=== PATIENT | male | born 1945 | race Caucasian/White ===

== ENCOUNTER → 2020-12-22 | Outpatient (CLI) | payer MEDICARE ==
[~2020-12-22] MED LIST: AMIO200T6 PO; ESOM20CA PO; ESOM40CA PO; FISH OIL; HYDR12.58 PO; IMMUNE DEFENSE PO; LOSA-73 PO; MELA10CA PO; METF500T16 PO; MULT-690 PO; MV-M1CAP18 PO; NITR0.4T22 SL; WARF3TAB50 PO; WARF4TAB64 PO; [UNRECOGNIZED DRUG - OTHER] PO; [UNRECOGNIZED DRUG - REMARK]
== END ==
LOC: LAB 12:35
PROVIDERS: ATTEND Surgery
DX: Z01.812 Encounter for preprocedural laboratory examination (principal); K21.9 Gastro-esophageal reflux disease without esophagitis; Z20.822 Contact with and (suspected) exposure to COVID-19
CPT/HCPCS: U0003

== ENCOUNTER 2020-12-27 08:36 | Observation (INO) | payer MEDICARE ==
[2020-12-27] VITALS (9 sets, daily range): BP systolic 143–157; BP diastolic 50–72
[~2020-12-27] VITALS: Ht 188 cm; Wt 105.5 kg
[~2020-12-27 08:36] MED LIST changes: +HYDROmorphone 2 MG/ML VIAL IVP PRN; +PROCHLORPERAZINE 10 MG/2 ML VIAL. IVP PRN; +ceFAZolin 2GM PREMIX 2 GM/50 ML BAG IV ONE; +fentaNYL PF VIAL 100 MCG/2 ML VIAL IVP PRN
[2020-12-27] MEDS ORDERED: ROCURONIUM 100 MG/10 ML VIAL. ONE (09:16)
[2020-12-27] MEDS ORDERED: DEXAMETHASONE SOD PHOS 4 MG/ML VIAL ONE (09:16)
[2020-12-27] MEDS ORDERED: PROPOFOL 10 MG/ML (20ML) VIAL. IV ONE (09:16)
[2020-12-27] MEDS ORDERED: LIDOCAINE 2% PF 5 ML VIAL. ONE (09:16)
[2020-12-27] MEDS ORDERED: ONDANSETRON PF 4 MG/2 ML VIAL. ONE ×2 (09:16→13:32)
[2020-12-27] MEDS ORDERED: fentaNYL PF VIAL 250 MCG/5 ML VIAL ONE (09:16)
[2020-12-27] MEDS ORDERED: MIDAZOLAM HCL/PF 2 MG/2 ML VIAL. ONE (09:16)
[2020-12-27] MEDS ORDERED: SURGICEL HEMOSTAT 4X8 EACH. ONE (09:19)
[2020-12-27] MEDS ORDERED: BUPIVACAINE-EPI 0.5%-1:200000 MPF 30 ML VIAL. ONE (09:19)
[2020-12-27] MEDS: IV RINGERS,LACTATED 1000ML 1,000 ML IV SCH ×2 (09:21→14:15)
[2020-12-27 09:46] LABS: PROTHROMBIN TIME PATIENT 14.4 SEC (11.7-14.0)
[2020-12-27] MEDS ORDERED: INSULIN LISPRO 100 UNIT/ML 3ML VIAL for OP,RR ONLY. SQ PRN (10:00)
[2020-12-27] MEDS ORDERED: ceFAZolin SODIUM IV Push 1 GM VIAL. IVP ONE ×2 (10:19)
[2020-12-27] MEDS ORDERED: NEOSTIGMINE METHYLSULFATE 5 MG/5 ML SYRINGE. ONE (13:08)
[2020-12-27] MEDS ORDERED: GLYCOPYRROLATE 1 MG/5 ML VIAL. ONE (13:08)
[2020-12-27] MEDS ORDERED: PHENYLEPHRINE in 0.9% NACL PF 1 MG/10 ML SYRINGE. IV ONE (13:23)
--- NOTE | 2020-12-27 13:55 | PDOC4 ---
Operative Note Operative Note Operative Note Preoperative Diagnosis: Hiatal hernia with gastroesophageal reflux disease Postoperative Diagnosis: Same Procedure: Laparoscopic repair of hiatall hernia with Dawna fundoplication Surgeon: Isai Miller.: Anoop Wen Anesthesia: Gen. Estimated Blood Loss: 20 mL Specimen: Hernia sac to pathology Drains: None Complications: None Indications: The patient is a 75 year old male who is referred for surgical treatment of a hiatal hernia with GERD symptoms. The risks of surgery were discussed which include bleeding, infection, recurrent herniation, gastric or esophageal perforation, visceral injury, recurrent reflux, gas bloat syndrome, dysphasia, potential need for additional surgeries or procedures. He understands and would like to proceed. Description: The patient was taken to the operating room and placed supine on the operating table. General anesthesia was performed. The patient was then placed in lithotomy. The abdomen was prepped with ChloraPrep and draped in a standard surgical fashion. A small incision was made in the left lateral abdomen through which a visualized 5 mm trocar was inserted. A pneumoperitoneum was then created and the laparoscope was introduced. Initial inspection showed some prominent adhesions of omentum to the anterior abdominal wall. To the left of the patient's umbilicus another 5 mm trocar was inserted. With the harmonic scalpel these adhesions of the omentum to the abdominal wall were taken down. In the right lateral abdomen a 12 mm trocar was inserted through which a soft fan retractor was used to elevate the left lobe of the liver. In the right upper quadrant a 5 mm trocar was inserted. In the left upper quadrant an 11 mm trocar was inserted while in the left lateral abdomen a 5 mm trocar was inserted. Attention was then directed to the diaphragmatic hiatus. As expected there was a moderate sized hiatal hernia defect. We then began mobilizing the entire hernia sac within the mediastinum. We started this on the right side and began freeing up the sac from the right froilan. The Harmonic scalpel assisted for much of this dissection. We continued mobilizing the sac superiorly well into the mediastinum. We continued this dissection anteriorly freeing up the sac and its attachments in this location. The dissection then continued along the left froilan and the sac and attachments were mobilized here as well. Portions of the redundant sac were also fully excised and sent off to pathology as a specimen. There was also a very prominent amount of fatty infiltration of the sac and mediastinal tissues. Several areas of prominent adipose tissue were resected and sent off with a hernia sac as specimen. The gastrocolic omentum was then opened with the Harmonic scalpel in the upper portion of the greater curvature. We then freed up the upper part of the greater curvature and fundus using the harmonic scalpel. Large blood vessels were doubly clipped and divided. The dissection continued all the way back up to the left froilan and any remaining splenic attachments were also mobilized. At this point the esophagus was readily visualized and we were able to free up the area around his gastroesophageal junction. A Augusta drain was then placed around the esophagus at the GE junction and clips were applied holding the Augusta in place. With retraction on the Augusta we were able to continue freeing up any remaining sac attachments particularly in the posterior location. At this point the GE junction was well within the abdominal cavity. The left and right froilan were then reapproximated with interrupted 2-0 silk sutures using the Endo Stitch device. We elected to reinforce the closure with Phasix ST mesh patch. The mesh was tailored to fit the space and a slit was made to accommodate the esophagus. The mesh was then introduced and laid up against the diaphragm and around the esophagus. Initial fixation sutures were placed at the superior corners of the mesh using 2-0 silk. The entire mesh was then fixed to the diaphragm using the Tisseel fibrin glue. The fundus was then wrapped around in a 360 fashion creating the fundoplication. A shoeshine maneuver was used to ensure no twists or kinks. An initial 2-0 Ethibond suture was used securing the fundic lips together. Another suture was placed superior to this which incorporated a small bite of the anterior esophagus. An additional suture was then placed inferiorly completing the fundoplication. At this point hemostasis was good, the hernia was well repaired with good coverage from the biologic mesh, and the fundoplication was intact with a nice orientation. The 11 and 12 mm trochars were then removed and the fascia closed with 0 Vicryl using an Endo Close. The remaining ports were removed and the pneumoperitoneum was relieved. Skin at all incisions was closed with 4-0 Monocryl. Steri-Strips and dressings were applied. The patient tolerated the procedure well. JAIRO PEREZ MD Dec 27, 2020 13:55
[2020-12-27] MEDS ORDERED: SEVOFLURANE > 120 MINUTES. IH ONE (13:56)
[2020-12-27] MEDS ORDERED: HYDROmorphone 2 MG/ML VIAL IV PRN ×3 (14:00→14:15)
[2020-12-27] MEDS ORDERED: IV NORMAL SALINE 1000ML BAG 1,000 ML IV SCH (14:00)
[2020-12-27] MEDS ORDERED: ONDANSETRON PF 4 MG/2 ML VIAL. IVP PRN ×2 (14:00→17:45)
[2020-12-27] MEDS ORDERED: 0.9 % SODIUM CHLORIDE 10 ML DISP.SYRIN. IV PRN (14:00)
[2020-12-27] MEDS: IV 1/2 NORMAL SALINE 1,000 ML IV SCH (14:00)
[2020-12-27] MEDS ORDERED: NALOXONE 0.4 MG/ML VIAL. IV PRN (14:00)
[2020-12-27] MEDS ORDERED: INSULIN LISPRO 100 UNIT/ML 3ML VIAL for OP,RR ONLY. SQ ONE (14:15)
--- NOTE | 2020-12-27 14:19 | PDOC2 ---
CONSULT Date of Consult Date of Consult DATE: 12/27/20 TIME: 14:11 Reason for Consult Reason for Consult: postop diabetes/medical management Referring Physician Referring Physician: Dr. 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 His pain is well controlled with minimal Dilaudid currently. He notes his blood glucose usually controlled with Metformin with meals at home. He follows at [facility] for cardiology with Dr. Hinojosa, had preoperative clearance and has held his warfarin since 12/23/2020. INR 1.2 preoperatively. He currently has no complaints, except asking for water. Glucose 155 during my examination Past Medical History Cardiovascular: AFIB, HTN Pulmonary: Pulmonary embolus GI: GERD, Peptic Ulcer disease Endocrine: Diabetes Past Surgical History Past Surgical History: Pacemaker, Hernia Repair Family History Family History: Diabetes Social History <1 pack per day ALCOHOL: none Drugs: None Lives: with Family Domestic Violence: Neg Current Medications Current Medications Current Medications Fentanyl Citrate (Fentanyl 2ml Vial) 25 mcg PRN Q5MIN PRN IVP MILD PAIN 1-3; Start 12/27/20 at 06:00; Stop 12/27/20 at 20:00 Fentanyl Citrate (Fentanyl 2ml Vial) 50 mcg PRN Q5MIN PRN IVP MODERATE PAIN 4- 6; Start 12/27/20 at 06:00; Stop 12/27/20 at 20:00 Morphine Sulfate (Morphine Sulfate) 1 mg PRN Q10MIN PRN IVP SEVERE PAIN 7-10; Start 12/27/20 at 06:00; Stop 12/27/20 at 20:00 Ringer's Solution 1,000 ml @ 30 mls/hr Q24H IV Last administered on 12/27/20at 09:21; Start 12/27/20 at 06:00; Stop 12/27/20 at 17:59 Hydromorphone HCl (Dilaudid) 0.5 mg PRN Q10MIN PRN IVP SEVERE PAIN 7-10, 2nd CHOICE; Start 12/27/20 at 06:00; Stop 12/27/20 at 20:00 Prochlorperazine Edisylate (Compazine) 5 mg PACU PRN PRN IVP NAUSEA, MRX1; Start 12/27/20 at 06:00; Stop 12/27/20 at 20:00 Cefazolin Sodium/ Dextrose 50 ml @ 100 mls/hr 1X ONCE IV ; Start 12/27/20 at 08:00; Stop 12/27/20 at 08:29; Status DC Rocuronium [place] (Zemuron) 100 mg STK-MED ONCE .ROUTE ; Start 12/27/20 at 09:16; Stop 12/27/20 at 09:16; Status DC Midazolam HCl (Versed) 2 mg STK-MED ONCE .ROUTE ; Start 12/27/20 at 09:16; Stop 12/27/20 at 09:16; Status DC Fentanyl Citrate (Fentanyl 5ml Vial) 250 mcg STK-MED ONCE .ROUTE ; Start 12/27/20 at 09:16; Stop 12/27/20 at 09:16; Status DC Dexamethasone Sodium Phosphate (Decadron) 4 mg STK-MED ONCE .ROUTE ; Start 12/27/20 at 09:16; Stop 12/27/20 at 09:17; Status DC Ondansetron HCl (Zofran) 4 mg STK-MED ONCE .ROUTE ; Start 12/27/20 at 09:16; Stop 12/27/20 at 09:17; Status DC Propofol (Diprivan) 200 mg STK-MED ONCE IV ; Start 12/27/20 at 09:16; Stop 12/27/20 at 09:17; Status DC Lidocaine HCl (Lidocaine Pf 2% Vial) 5 ml STK-MED ONCE .ROUTE ; Start 12/27/20 at 09:16; Stop 12/27/20 at 09:17; Status DC Bupivacaine HCl/ Epinephrine Bitart (Sensorcain-Epi 0.5%-1:440719 Mpf) 30 ml STK-MED ONCE .ROUTE Last administered on 12/27/20at 10:52; Start 12/27/20 at 09:19; Stop 12/27/20 at 09:19; Status DC Cellulose (Surgicel Hemostat 4x8) 1 each STK-MED ONCE .ROUTE ; Start 12/27/20 at 09:19; Stop 12/27/20 at 09:19; Status DC Insulin Human Lispro (HumaLOG VIAL for OP,RR ONLY) 0-10 units PRN Q1HR PRN SQ PER PROTOCOL; Start 12/27/20 at 10:00; Stop 12/28/20 at 09:59 Cefazolin Sodium (Ancef) 1 gm STK-MED ONCE IVP ; Start 12/27/20 at 10:19; Stop 12/27/20 at 10:19; Status DC Cefazolin Sodium (Ancef) 1 gm STK-MED ONCE IVP ; Start 12/27/20 at 10:19; Stop 12/27/20 at 10:20; Status DC Neostigmine [place] (Neostigmine Methylsulfate) 5 mg STK-MED ONCE .ROUTE ; Start 12/27/20 at 13:08; Stop 12/27/20 at 13:08; Status DC Glycopyrrolate (Robinul) 1 mg STK-MED ONCE .ROUTE ; Start 12/27/20 at 13:08; Stop 12/27/20 at 13:08; Status DC Phenylephrine HCl (PHENYLEPHRINE in 0.9% NACL PF) 1 mg STK-MED ONCE IV ; Start 12/27/20 at 13:23; Stop 12/27/20 at 13:23; Status DC Ondansetron HCl (Zofran) 4 mg STK-MED ONCE .ROUTE ; Start 12/27/20 at 13:32; Stop 12/27/20 at 13:33; Status DC Sevoflurane (Ultane) 90 ml STK-MED ONCE IH ; Start 12/27/20 at 13:56; Stop 12/27/20 at 13:56; Status DC Sodium Chloride (Normal Saline Flush) 3 ml QSHIFT PRN IV AFTER MEDS AND BLOOD DRAWS; Start 12/27/20 at 14:00 Sodium Chloride 1,000 ml @ 100 mls/hr Q10H IV ; Start 12/27/20 at 14:00 Naloxone HCl (Narcan) 0.4 mg PRN Q2MIN PRN IV SEE INSTRUCTIONS; Start 12/27/20 at 14:00 Sodium Chloride 1,000 ml @ 25 mls/hr Q24H IV ; Start 12/27/20 at 14:00 Hydromorphone HCl (Dilaudid) 0.2 mg PRN Q2HRS PRN IV MILD PAIN 1-3; Start 12/27/20 at 14:00 Ondansetron HCl (Zofran) 4 mg PRN Q6HRS PRN IVP NAUESA, 1ST CHOICE; Start 12/27/20 at 14:00 Enoxaparin Sodium (Lovenox 40mg Syringe) 40 mg Q24H SQ ; Start 12/27/20 at 14:15; Status UNV Hydromorphone HCl (Dilaudid) 0.4 mg PRN Q2HRS PRN IV MODERATE PAIN; Start 12/27/20 at 14:15 Hydromorphone HCl (Dilaudid) 0.6 mg PRN Q2HRS PRN IV SEVERE PAIN; Start 12/27/20 at 14:15 Active Scripts Active Reported Metformin Hcl 500 Mg Tablet 500 Mg PO 1-2XD Melatonin 10 Mg Capsule 1 Cap PO QHS 30 Days Warfarin Sodium 3 Mg Tablet 3 Mg PO 2XWEEK Warfarin Sodium 4 Mg Tablet 4 Mg PO 5XWEEK Macular Health Formula Capsule (Mv-Mn/Lutein/Zeax/Bilber/Hb277) 1 Each Capsule 1 Each PO DAILY [Immune defense] PO DAILY [paragon fish oil] DAILY NITROGLYCERIN SubLingual (Nitroglycerin) 0.4 Mg Tab.subl 0.4 Mg SL PRN Q5MIN PRN Nexium Capsule (Esomeprazole Magnesium) 20 Mg Capsule.dr 20 Mg PO DAILYWSUP Nexium Capsule (Esomeprazole Magnesium) 40 Mg Capsule.dr 1 Cap PO DAILY Losartan Potassium 50 Mg Tablet 50 Mg PO DAILY [iron plus C] PO DAILY Hydrochlorothiazide Tablet (Hydrochlorothiazide) 12.5 Mg Tablet 12.5 Mg PO DAILY Centrum Silver Men Tablet (Multivit-Min/FA/Lycopen/Lutein) 1 Each Tablet 1 Each PO DAILY [enzyme MD] DAILY Amiodarone Hcl 200 Mg Tablet 1 Tab PO DAILY Allergies Allergies: Coded Allergies: No Known Drug Allergies (Unverified , 12/27/20) ROS General: No: Chills, Night Sweats, Fatigue, Malaise, Appetite, Other PSYCHOLOGICAL ROS: No: Anxiety, Behavioral Disorder, Concentration difficultie, Decreased libido, Depression, Disorientation, Hallucinations, Hostility, Irritablity, Memory difficulties, Mood Swings, Obsessive thoughts, Physical abuse, Sexual abuse, Sleep disturbances, Suicidal ideation, Other Eyes: No Blurry vision, No Decreased vision, No Double vision, No Dry eyes, No Excessive tearing, No Eye Pain, No Itchy Eyes, No Loss of vision, No Photophobia, No Scotomata, No Uses contacts, No Uses glasses, No Other HEENT: No: Heacaches, Visual Changes, Hearing change, Nasal congestion, Nasal discharge, Oral lesions, Sinus pain, Sore Throat, Epistaxis, Sneezing, Snoring, Tinnitus, Vertigo, Vocal changes, Other ALLERGY AND IMMUNOLOGY: No: Hives, Insect Bite Sensitivity, Itchy/Watery Eyes, Nasal Congestion, Post Nasal Drip, Seasonal Allergies, Other Hematological and Lymphatic: YES: Bleeding Problems, Blood Clots; No: Blood Transfusions, Brusing, Night Sweats, Pallor, Swollen Lymph Nodes, Other ENDOCRINE: No: Breast Changes, Galactorrhea, Hair Pattern Changes, Hot Flashes, Malaise/lethargy, Mood Swings, Palpitations, Polydipsia/polyuria, Skin Changes, Temperature Intolerance, Unexpected Weight Changes, Other Breast: No New/Changing Breast Lumps, No Nipple changes, No Nipple discharge, No Other Respiratory: No: Cough, Hemoptysis, Orthopnea, Pleuritic Pain, Shortness of breath, SOB with excertion, Sputum Changes, Stridor, Tachypnea, Wheezing, Other Cardiovascular: No Chest Pain, No Palpitations, No Orthopnea, No Paroxysmal Noc. Dyspnea, No Edema, No Lt Headedness, No Other Gastrointestinal: No Nausea, No Vomiting, No Abdominal Pain, No Diarrhea, No Constipation, No Melena, No Hematochezia, No Other Genitourinary: No Dysuria, No Frequency, No Incontinence, No Hematuria, No Retention, No Discharge, No Urgency, No Pain, No Flank Pain, No Other, No , No , No , No , No , No , No Musculoskeletal: No Gait Disturbance, No Joint Pain, No Joint Stiffness, No Joint Swelling, No Muscle Pain, No Muscular Weakness, No Pain In:, No Swelling In:, No Other Neurological: No Behavorial Changes, No Bowel/Bladder ControlChng, No Confu andres, No Dizziness, No Gait Disturbance, No Headaches, No Impaired Coord/balance, No Memory Loss, No Numbness/Tingling, No Seizures, No Speech Problems, No Tremors, No Visual Changes, No Weakness, No Other Skin: No Dry Skin, No Eczema, No Hair Changes, No Lumps, No Mole Changes, No Mottling, No Nail Changes, No Pruritus, No Rash, No Skin Lesion Changes, No Oth er, No Acne Physical Exam General: Alert, Oriented X3, Cooperative, No acute distress HEENT: Atraumatic, PERRLA, EOMI, Mucous membr. moist/pink, Other (Glasses and dentures in place) Lungs: Clear to auscultation, Normal air movement Heart: Other (Irregularly irregular) Abdomen: Normal bowel sounds, Soft, No tenderness, No hepatosplenomegaly, No masses Extremities: No clubbing, No cyanosis, No edema, Normal pulses, No tenderness/swelling Skin: No rashes, No breakdown Neuro: Normal speech, Strength at 5/5 X4 ext, Normal tone, Sensation intact, Cranial nerves 3-12 NL, Reflexes 2+ Psych/Mental Status: Mental status NL, Mood NL MUSCULOSKELETAL: No joint tenderness, No deformity, No swelling, No muscular tenderness noted, Full range of motion without pain Vitals VITALS Vital Signs Date Time Temp Pulse Resp B/P (MAP) Pulse Ox O2 Delivery O2 Flow Rate FiO2 12/27/20 13:56 Mask 8 12/27/20 09:13 97.5 73 20 187/78 98 97.5 Labs Labs Laboratory Tests Test 12/27/20 09:15 12/27/20 09:21 12/27/20 14:08 Glucose (Fingerstick) 111 mg/dL (70-99) 155 mg/dL (70-99) Prothrombin Time 14.4 SEC (11.7-14.0) Prothromb Time International Ratio 1.2 (0.8-1.1) Activated Partial Thromboplast Time 28 SEC (24-38) Laboratory Tests Test 12/27/20 09:15 12/27/20 09:21 12/27/20 14:08 Glucose (Fingerstick) 111 mg/dL (70-99) 155 mg/dL (70-99) Prothrombin Time 14.4 SEC (11.7-14.0) Prothromb Time International Ratio 1.2 (0.8-1.1) Activated Partial Thromboplast Time 28 SEC (24-38) Assessment/Plan Assessment/Plan A/P: GERD - with hiatal hernia, now seen post-operatively s/p dawna fundoplication DM2 - hold metformin, will place on sliding scale insulin IBS - diet controlled Smoker - counseled on cessation, offered nicotine replacement therapy HTN - cont losartan, hold HCTZ Atrial fibrillation - rate controlled with amiodarone, not on BB or CCB due to bradycardia according to patient. On warfarin for elevated CHADS2-Vasc SSS status post PPM - sees Dr. Hinojosa at [facility] Prior DVT and PE in 2009 on long-term warfarin - should also be on warfarin for his afib H/o Barrets esophagus - now s/p dawna FEN - NSS 100cc/hr. NPO except for sips PPX - lovenox in AM, would continue this along with his coumadin in AM. Goal INR 2-3 CODE - FULL Dispo - cont inpatient for post-operative care We will continue to follow daily, either myself or Dr. Cornejo. Call for any questions or concerns As patient recovers surgically we will be happy to take over primary care once surgical issues have resolved if necessary. Thank you for consulting [facility] for medical management. SALTY ANDERSEN MD Dec 27, 2020 14:19
[2020-12-27] MEDS ORDERED: MORPHINE SULFATE 2 MG/ML VIAL. ONE (14:33)
[2020-12-27] MEDS: MORPHINE SULFATE 2 MG/ML VIAL. IVP PRN ×2 (14:35→14:48)
[2020-12-27] MEDS ORDERED: HYDROmorphone 2 MG/ML VIAL ONE (14:55)
[2020-12-27] MEDS ORDERED: DEXTROSE 50% 25 GM / 50ML DISP.SYRIN. IV PRN (17:45)
[2020-12-27] MEDS ORDERED: ACETAMINOPHEN 650 MG SUPP.RECT. PR PRN (17:45)
[2020-12-27] MEDS ORDERED: NITROGLYCERIN SUBLINGUAL 0.4 MG BOTTLE OF 25. SL PRN (17:45)
[2020-12-27] MEDS: INSULIN LISPRO 300 UNITS/3 ML VIAL. SQ SCH (21:00)
[2020-12-28] MEDS: IV 1/2 NORMAL SALINE 1,000 ML IV SCH ×4 (02:00→22:38)
[2020-12-28 03:00] VITALS: BP 136/58
[2020-12-28] MEDS: ENOXAPARIN 40 MG/0.4 ML SYRINGE. SQ SCH (05:55)
[2020-12-28 07:00] VITALS: BP 146/60
[2020-12-28 07:30] LABS: PROTHROMBIN TIME PATIENT 15.9 SEC (11.7-14.0)
[2020-12-28] MEDS: INSULIN LISPRO 300 UNITS/3 ML VIAL. SQ SCH ×4 (07:30→21:00)
--- NOTE | 2020-12-28 07:33 | PDOC ---
[employer] PROGRESS NOTE Date of Service DOS: DATE: 12/28/20 TIME: 07:17 Chief Complaint Chief Complaint A/P: GERD - with hiatal hernia, now seen post-operatively s/p dawna fundoplication DM2 - hold metformin, will place on sliding scale insulin IBS - diet controlled Smoker - counseled on cessation, offered nicotine replacement therapy HTN - cont losartan, hold HCTZ Atrial fibrillation - rate controlled with amiodarone, not on BB or CCB due to bradycardia according to patient. On warfarin for elevated CHADS2-Vasc SSS status post PPM - sees Dr. Hinojosa at [facility] Prior DVT and PE in 2009 on long-term warfarin - should also be on warfarin for his afib H/o Barrets esophagus - now s/p dawna FEN - NSS 100cc/hr. NPO except for sips PPX - lovenox in AM, would continue this along with his coumadin in AM. 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 His pain is well controlled with minimal Dilaudid currently. He notes his blood glucose usually controlled with Metformin with meals at home. He follows at [facility] for cardiology with Dr. Hinojosa, had preoperative clearance and has held his warfarin since 12/23/2020. INR 1.2 preoperatively. He currently has no complaints, except asking for water. Glucose 155 during my examination 12/28: Afebrile. POD #1, s/p Dawna fundoplication. Tolerating clears tolerating clears, no bowel movement. Advance diet as tolerated. Will initiate IV PPI. Vitals/I&O Vitals/I&O: Vital Signs Date Time Temp Pulse Resp B/P (MAP) Pulse Ox O2 Delivery O2 Flow Rate FiO2 12/28/20 03:00 98.0 69 17 136/58 (84) 93 Room Air 98.0 12/27/20 14:48 8.0 I & O 12/27/20 12/27/20 12/28/20 15:00 23:00 07:00 Intake Total 1950 ml 300 ml Output Total 220 ml 200 ml Balance 1730 ml 300 ml -200 ml Physical Exam General: Alert, Oriented X3, Cooperative, No acute distress Heart: Other (Irregularly irregular) Lungs: Clear Abdomen: Normal bowel sounds, Soft, No tenderness, No masses Extremities: No clubbing, No cyanosis, No edema, Normal pulses Skin: No rashes, No breakdown Labs Labs: Laboratory Tests Test 12/27/20 09:15 12/27/20 09:21 12/27/20 14:08 12/27/20 20:21 Glucose (Fingerstick) 111 mg/dL (70-99) 155 mg/dL (70-99) 127 mg/dL (70-99) Prothrombin Time 14.4 SEC (11.7-14.0) Prothromb Time International Ratio 1.2 (0.8-1.1) Activated Partial Thromboplast Time 28 SEC (24-38) Comment Review of Relevant I have reviewed the following items antoni (where applicable) has been applied. Medications: Current Medications Medications (Trade) Dose Ordered Sig/Mavis Route PRN Reason Start Time Stop Time Status Last Admin Dose Admin Bupivacaine HCl/ Epinephrine Bitart (Sensorcain-Epi 0.5%-1:750068 Mpf) 30 ml STK-MED ONCE .ROUTE 12/27/20 09:19 12/27/20 09:19 DC 12/27/20 10:52 Insulin Human Lispro (HumaLOG VIAL for OP,RR ONLY) 0-10 units PRN Q1HR PRN SQ PER PROTOCOL 12/27/20 10:00 12/28/20 09:59 12/27/20 14:11 Sodium Chloride 1,000 ml @ 100 mls/hr Q10H IV 12/27/20 14:00 12/28/20 02:00 Enoxaparin Sodium (Lovenox 40mg Syringe) 40 mg Q24H SQ 12/28/20 06:00 12/28/20 05:55 Justifications for Admission Other Justification AGNES OSWALD MD Dec 28, 2020 07:33
[2020-12-28 07:39] LABS: CREATININE 1.1 mg/dL (0.7-1.3); GFR 65.3
[2020-12-28] MEDS: PANTOPRAZOLE IV PUSH 40 MG VIAL. IVP SCH (08:21)
--- NOTE | 2020-12-28 08:32 | PDOC ---
JOSE CARLOS DELA CRUZ WAITER/WAITRESS TAKE OUT 12/28/20 0832: SURGICAL PROGRESS NOTE DATE: 12/28/20 TIME: 08:31 Subjective doing ok no reflux Vital Signs Vital Signs Date Time Temp Pulse Resp B/P (MAP) Pulse Ox O2 Delivery O2 Flow Rate FiO2 12/28/20 03:00 98.0 69 17 136/58 (84) 93 Room Air 98.0 12/27/20 14:48 8.0 I&O Intake and Output 12/28/20 07:00 Intake Total 2250 ml Output Total 420 ml Balance 1830 ml Intake Oral 300 ml IV Total 1950 ml Output Urine Total 400 ml Estimated Blood Loss 20 ml General: Alert, Oriented X3, Cooperative Abdomen: Soft, Other (lap dressings dry) Labs Laboratory Tests Test 12/27/20 09:15 12/27/20 09:21 12/27/20 14:08 12/27/20 20:21 Glucose (Fingerstick) 111 mg/dL (70-99) 155 mg/dL (70-99) 127 mg/dL (70-99) Prothrombin Time 14.4 SEC (11.7-14.0) Prothromb Time International Ratio 1.2 (0.8-1.1) Activated Partial Thromboplast Time 28 SEC (24-38) Test 12/28/20 07:00 12/28/20 07:11 Prothrombin Time 15.9 SEC (11.7-14.0) Prothromb Time International Ratio 1.3 (0.8-1.1) Sodium Level 139 mmol/L (136-145) Potassium Level 4.0 mmol/L (3.5-5.1) Chloride Level 103 mmol/L (98-107) Carbon Dioxide Level 26 mmol/L (21-32) Anion Gap 10 (6-14) Blood Urea Nitrogen 9 mg/dL (8-26) Creatinine 1.1 mg/dL (0.7-1.3) Estimated GFR (Cockcroft-Gault) 65.3 Glucose Level 110 mg/dL (70-99) Calcium Level 8.0 mg/dL (8.5-10.1) Glucose (Fingerstick) 115 mg/dL (70-99) Laboratory Tests Test 12/27/20 09:15 12/27/20 09:21 12/27/20 14:08 3/17/21 20:21 Glucose (Fingerstick) 111 mg/dL (70-99) 155 mg/dL (70-99) 127 mg/dL (70-99) Prothrombin Time 14.4 SEC (11.7-14.0) Prothromb Time International Ratio 1.2 (0.8-1.1) Activated Partial Thromboplast Time 28 SEC (24-38) Test 12/28/20 07:00 12/28/20 07:11 Prothrombin Time 15.9 SEC (11.7-14.0) Prothromb Time International Ratio 1.3 (0.8-1.1) Sodium Level 139 mmol/L (136-145) Potassium Level 4.0 mmol/L (3.5-5.1) Chloride Level 103 mmol/L (98-107) Carbon Dioxide Level 26 mmol/L (21-32) Anion Gap 10 (6-14) Blood Urea Nitrogen 9 mg/dL (8-26) Creatinine 1.1 mg/dL (0.7-1.3) Estimated GFR (Cockcroft-Gault) 65.3 Glucose Level 110 mg/dL (70-99) Calcium Level 8.0 mg/dL (8.5-10.1) Glucose (Fingerstick) 115 mg/dL (70-99) Assessment/Plan s/p delia fundoplication clears, oral pain meds Justicifation of Admission Dx: Justifications for Admission: Justification of Admission Dx: Yes Comments: Hiatal hernia JAIRO PEREZ MD 12/28/20 1009: SURGICAL PROGRESS NOTE Assessment/Plan Agree with above JOSE CARLOS DELA CRUZ APRN Dec 28, 2020 08:32 JAIRO PEREZ MD Dec 28, 2020 10:09
[2020-12-28 11:00] VITALS: BP 155/57
[2020-12-28] MEDS: HYDROcodon/APAP 7.5/325MG ORAL 15 ML SOLUTION PO PRN ×2 (11:57→19:18)
[2020-12-28] MEDS: AMIODARONE HCL 200 MG TABLET. PO SCH (12:04)
[2020-12-28] MEDS: LOSARTAN POTASSIUM 50 MG TABLET. PO SCH (12:04)
[2020-12-28 15:00] VITALS: BP 129/52
[2020-12-28] MEDS ORDERED: WARFARIN 3 MG TABLET. PO ONE (16:00)
[2020-12-28 19:40] VITALS: BP 147/62
[2020-12-28 23:39] VITALS: BP 132/55
[2020-12-29 03:37] VITALS: BP 130/72
[2020-12-29] MEDS: HYDROcodon/APAP 7.5/325MG ORAL 15 ML SOLUTION PO PRN (05:53)
[2020-12-29] MEDS: IV 1/2 NORMAL SALINE 1,000 ML IV SCH (05:53)
[2020-12-29] MEDS: PANTOPRAZOLE IV PUSH 40 MG VIAL. IVP SCH (05:53)
[2020-12-29] MEDS: ENOXAPARIN 40 MG/0.4 ML SYRINGE. SQ SCH (05:53)
[2020-12-29 07:00] VITALS: BP 128/50
[2020-12-29] MEDS: INSULIN LISPRO 300 UNITS/3 ML VIAL. SQ SCH ×2 (07:30→11:30)
[2020-12-29] MEDS ORDERED: PANTOPRAZOLE 40 MG TABLET.DR. PO SCH (07:30)
[2020-12-29 07:36] LABS: BASO % 0 % (0-3); EOS # 0.2 x10^3/uL (0.0-0.7); EOS % 2 % (0-3); HEMATOCRIT 32.7 % (39.0-53.0); LYMPH # 1.9 x10^3/uL (1.0-4.8); LYMPH % 18 % (24-48); MEAN CORPUSCULAR HEMOGLOBIN 30 pg (25-35); MEAN CORPUSCULAR HGB CONC 34 g/dL (31-37); MEAN CORPUSCULAR VOLUME 89 fL (79-100); MONO # 1.3 x10^3/uL (0.0-1.1); MONO % 12 % (0-9); NEUT % 68 % (31-73); PLATELET COUNT 212 x10^3/uL (140-400); RED BLOOD COUNT 3.66 x10^6/uL (4.30-5.70); RED CELL DISTRIBUTION WIDTH 16.3 % (11.5-14.5); WHITE BLOOD COUNT 10.4 x10^3/uL (4.0-11.0)
[2020-12-29 07:58] LABS: CALCIUM 8.2 mg/dL (8.5-10.1); CREATININE 1.1 mg/dL (0.7-1.3); GFR 65.3; POTASSIUM 3.5 mmol/L (3.5-5.1)
[2020-12-29 08:33] LABS: PROTHROMBIN TIME PATIENT 16.5 SEC (11.7-14.0)
[2020-12-29] MEDS: LOSARTAN POTASSIUM 50 MG TABLET. PO SCH (08:36)
[2020-12-29] MEDS: AMIODARONE HCL 200 MG TABLET. PO SCH (08:37)
--- NOTE | 2020-12-29 09:50 | PDOC ---
SURGICAL PROGRESS NOTE DATE: 12/29/20 TIME: 09:49 Subjective tolerating diet no reflux pain managed Vital Signs Vital Signs Date Time Temp Pulse Resp B/P (MAP) Pulse Ox O2 Delivery O2 Flow Rate FiO2 12/29/20 08:37 67 128/50 12/29/20 08:00 Room Air 12/29/20 07:00 98.0 18 92 98.0 I&O Intake and Output 12/29/20 07:00 Intake Total 1000 ml Output Total 700 ml Balance 300 ml Intake Oral 1000 ml Output Urine Total 700 ml General: Alert, Oriented X3, Cooperative Abdomen: Soft, Other (ND, lap dressings dry) Labs Laboratory Tests Test 12/27/20 14:08 12/27/20 20:21 12/28/20 07:00 12/28/20 07:11 Glucose (Fingerstick) 155 mg/dL (70-99) 127 mg/dL (70-99) 115 mg/dL (70-99) Prothrombin Time 15.9 SEC (11.7-14.0) Prothromb Time International Ratio 1.3 (0.8-1.1) Sodium Level 139 mmol/L (136-145) Potassium Level 4.0 mmol/L (3.5-5.1) Chloride Level 103 mmol/L (98-107) Carbon Dioxide Level 26 mmol/L (21-32) Anion Gap 10 (6-14) Blood Urea Nitrogen 9 mg/dL (8-26) Creatinine 1.1 mg/dL (0.7-1.3) Estimated GFR (Cockcroft-Gault) 65.3 Glucose Level 110 mg/dL (70-99) Calcium Level 8.0 mg/dL (8.5-10.1) Test 12/28/20 11:40 12/28/20 16:27 12/28/20 20:47 12/29/20 07:00 Glucose (Fingerstick) 99 mg/dL (70-99) 105 mg/dL (70-99) 108 mg/dL (70-99) White Blood Count 10.4 x10^3/uL (4.0-11.0) Red Blood Count 3.66 x10^6/uL (4.30-5.70) Hemoglobin 11.0 g/dL (13.0-17.5) Hematocrit 32.7 % (39.0-53.0) Mean Corpuscular Volume 89 fL (79-100) Mean Corpuscular Hemoglobin 30 pg (25-35) Mean Corpuscular Hemoglobin Concent 34 g/dL (31-37) Red Cell Distribution Width 16.3 % (11.5-14.5) Platelet Count 212 x10^3/uL (140-400) Neutrophils (%) (Auto) 68 % (31-73) Lymphocytes (%) (Auto) 18 % (24-48) Monocytes (%) (Auto) 12 % (0-9) Eosinophils (%) (Auto) 2 % (0-3) Basophils (%) (Auto) 0 % (0-3) Neutrophils # (Auto) 7.0 x10^3/uL (1.8-7.7) Lymphocytes # (Auto) 1.9 x10^3/uL (1.0-4.8) Monocytes # (Auto) 1.3 x10^3/uL (0.0-1.1) Eosinophils # (Auto) 0.2 x10^3/uL (0.0-0.7) Basophils # (Auto) 0.0 x10^3/uL (0.0-0.2) Prothrombin Time 16.5 SEC (11.7-14.0) Prothromb Time International Ratio 1.4 (0.8-1.1) Sodium Level 139 mmol/L (136-145) Potassium Level 3.5 mmol/L (3.5-5.1) Chloride Level 103 mmol/L (98-107) Carbon Dioxide Level 26 mmol/L (21-32) Anion Gap 10 (6-14) Blood Urea Nitrogen 7 mg/dL (8-26) Creatinine 1.1 mg/dL (0.7-1.3) Estimated GFR (Cockcroft-Gault) 65.3 Glucose Level 115 mg/dL (70-99) Calcium Level 8.2 mg/dL (8.5-10.1) Test 12/29/20 07:34 Glucose (Fingerstick) 121 mg/dL (70-99) Laboratory Tests Test 12/28/20 11:40 12/28/20 16:27 12/28/20 20:47 12/29/20 07:00 Glucose (Fingerstick) 99 mg/dL (70-99) 105 mg/dL (70-99) 108 mg/dL (70-99) White Blood Count 10.4 x10^3/uL (4.0-11.0) Red Blood Count 3.66 x10^6/uL (4.30-5.70) Hemoglobin 11.0 g/dL (13.0-17.5) Hematocrit 32.7 % (39.0-53.0) Mean Corpuscular Volume 89 fL (79-100) Mean Corpuscular Hemoglobin 30 pg (25-35) Mean Corpuscular Hemoglobin Concent 34 g/dL (31-37) Red Cell Distribution Width 16.3 % (11.5-14.5) Platelet Count 212 x10^3/uL (140-400) Neutrophils (%) (Auto) 68 % (31-73) Lymphocytes (%) (Auto) 18 % (24-48) Monocytes (%) (Auto) 12 % (0-9) Eosinophils (%) (Auto) 2 % (0-3) Basophils (%) (Auto) 0 % (0-3) Neutrophils # (Auto) 7.0 x10^3/uL (1.8-7.7) Lymphocytes # (Auto) 1.9 x10^3/uL (1.0-4.8) Monocytes # (Auto) 1.3 x10^3/uL (0.0-1.1) Eosinophils # (Auto) 0.2 x10^3/uL (0.0-0.7) Basophils # (Auto) 0.0 x10^3/uL (0.0-0.2) Prothrombin Time 16.5 SEC (11.7-14.0) Prothromb Time International Ratio 1.4 (0.8-1.1) Sodium Level 139 mmol/L (136-145) Potassium Level 3.5 mmol/L (3.5-5.1) Chloride Level 103 mmol/L (98-107) Carbon Dioxide Level 26 mmol/L (21-32) Anion Gap 10 (6-14) Blood Urea Nitrogen 7 mg/dL (8-26) Creatinine 1.1 mg/dL (0.7-1.3) Estimated GFR (Cockcroft-Gault) 65.3 Glucose Level 115 mg/dL (70-99) Calcium Level 8.2 mg/dL (8.5-10.1) Test 12/29/20 07:34 Glucose (Fingerstick) 121 mg/dL (70-99) Assessment/Plan s/p delia ok to dc home Justicifation of Admission Dx: Justifications for Admission: Justification of Admission Dx: Yes JOSE CARLOS DELA CRUZ APRN Dec 29, 2020 09:50
[2020-12-29] MEDS ORDERED: HYDR15SO6 PO (09:52)
--- NOTE | 2020-12-29 09:54 | DISCH ---
DISCHARGE INSTRUCTIONS Condition on Discharge Condition on Discharge: Stable Activity After Discharge Activity Instructions for Disc: Resume previous activity, Activity as tolerated Bathing Instructions: No Tub Bath until see (x 2weeks ) Lifting Instructions after Dis: No heavy lifting, No pulling or pushing Driving Instructions after Dis: Do not drive (no driving while taking pain medication) Diet after Discharge Diet after Discharge: Full Liquid (x 2weeks ) Wound Incision Care Wound/Incision Care: May get incision wet, No wound care needed Contacting the DROmar after DC Call your doctor for: Concerns you may have Follow-Up Follow up with: Dr Alex 2 weeks, call to schedule [phone] JOSE CARLOS DELA CRUZ APRN Dec 29, 2020 09:53
[2020-12-29 11:00] VITALS: BP 139/60
--- NOTE | 2020-12-29 11:13 | PDOC ---
[facility] PROGRESS NOTE Date of Service DOS: DATE: 12/29/20 TIME: 11:12 Chief Complaint Chief Complaint A/P: GERD - with hiatal hernia, now seen post-operatively s/p dawna fundoplication DM2 - hold metformin, will place on sliding scale insulin IBS - diet controlled Smoker - counseled on cessation, offered nicotine replacement therapy HTN - cont losartan, hold HCTZ Atrial fibrillation - rate controlled with amiodarone, not on BB or CCB due to bradycardia according to patient. On warfarin for elevated CHADS2-Vasc SSS status post PPM - sees Dr. 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 NPO except for sips PPX - lovenox in AM, would continue this along with his coumadin in AM. 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 His pain is well controlled with minimal Dilaudid currently. He notes his blood glucose usually controlled with Metformin with meals at home. He follows at [facility] for cardiology with Dr. Hinojosa, had preoperative clearance and has held his warfarin since 12/23/2020. INR 1.2 preoperatively. He currently has no complaints, except asking for water. Glucose 155 during my examination 12/28: Afebrile. POD #1, s/p Dawna fundoplication. Tolerating clears tolerating clears, no bowel movement. Advance diet as tolerated. Will initiate IV PPI. 12/29: Patient seen POD #2. Tolerated his regular diet. Denies any nausea or vomiting. Discharge per general surgery. Vitals/I&O Vitals/I&O: Vital Signs Date Time Temp Pulse Resp B/P (MAP) Pulse Ox O2 Delivery O2 Flow Rate FiO2 12/29/20 08:37 67 128/50 12/29/20 08:00 Room Air 12/29/20 07:00 98.0 18 92 98.0 I & O 12/28/20 12/28/20 12/29/20 15:00 23:00 07:00 Intake Total 320 ml 200 ml 480 ml Output Total 700 ml Balance 320 ml 200 ml -220 ml Physical Exam General: Alert, Oriented X3, Cooperative Heart: Other (Irregularly irregular) Lungs: Clear Abdomen: Soft, Other (ND, lap dressings dry) Extremities: No clubbing, No cyanosis, No edema, Normal pulses Skin: No rashes, No breakdown Labs Labs: Laboratory Tests Test 12/28/20 11:40 12/28/20 16:27 12/28/20 20:47 12/29/20 07:00 Glucose (Fingerstick) 99 mg/dL (70-99) 105 mg/dL (70-99) 108 mg/dL (70-99) White Blood Count 10.4 x10^3/uL (4.0-11.0) Red Blood Count 3.66 x10^6/uL (4.30-5.70) Hemoglobin 11.0 g/dL (13.0-17.5) Hematocrit 32.7 % (39.0-53.0) Mean Corpuscular Volume 89 fL (79-100) Mean Corpuscular Hemoglobin 30 pg (25-35) Mean Corpuscular Hemoglobin Concent 34 g/dL (31-37) Red Cell Distribution Width 16.3 % (11.5-14.5) Platelet Count 212 x10^3/uL (140-400) Neutrophils (%) (Auto) 68 % (31-73) Lymphocytes (%) (Auto) 18 % (24-48) Monocytes (%) (Auto) 12 % (0-9) Eosinophils (%) (Auto) 2 % (0-3) Basophils (%) (Auto) 0 % (0-3) Neutrophils # (Auto) 7.0 x10^3/uL (1.8-7.7) Lymphocytes # (Auto) 1.9 x10^3/uL (1.0-4.8) Monocytes # (Auto) 1.3 x10^3/uL (0.0-1.1) Eosinophils # (Auto) 0.2 x10^3/uL (0.0-0.7) Basophils # (Auto) 0.0 x10^3/uL (0.0-0.2) Prothrombin Time 16.5 SEC (11.7-14.0) Prothromb Time International Ratio 1.4 (0.8-1.1) Sodium Level 139 mmol/L (136-145) Potassium Level 3.5 mmol/L (3.5-5.1) Chloride Level 103 mmol/L (98-107) Carbon Dioxide Level 26 mmol/L (21-32) Anion Gap 10 (6-14) Blood Urea Nitrogen 7 mg/dL (8-26) Creatinine 1.1 mg/dL (0.7-1.3) Estimated GFR (Cockcroft-Gault) 65.3 Glucose Level 115 mg/dL (70-99) Calcium Level 8.2 mg/dL (8.5-10.1) Test 12/29/20 07:34 Glucose (Fingerstick) 121 mg/dL (70-99) Comment Review of Relevant I have reviewed the following items antoni (where applicable) has been applied. Medications: Current Medications Medications (Trade) Dose Ordered Sig/Mavis Route PRN Reason Start Time Stop Time Status Last Admin Dose Admin Warfarin Sodium (Coumadin) 6 mg 1X WARF ONCE PO 12/28/20 16:00 12/28/20 16:01 DC 12/28/20 16:58 Pantoprazole Sodium (Protonix) 40 mg DAILYAC PO 12/29/20 07:30 12/29/20 08:36 Justifications for Admission Other Justification AGNES OSWALD MD Dec 29, 2020 11:13
[2020-12-29] MEDS ORDERED: WARFARIN 3 MG TABLET. PO ONE (16:00)
[2020-12-30] MEDS ORDERED: WARFARIN 4 MG TABLET. PO SCH (16:00)
--- NOTE | 2021-01-02 09:16 | PATHOLOGY ---
[facility] Accession Number: [id number] . 01 Material submitted: . gastrointestinal site - HERNIA SAC AND MEDIASTINAL FAT . 01 Clinical history: . GERD JANELL FUNDOPLICATION HIATAL HERNIA WITH GASTROE . 02 Diagnosis: Segments of fibromembranous and fibroadipose tissue and lymph node, designated "hernia sac and mediastinal fat": - Hernia sac. 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 . (JPM:mm; 01/01/2021) [facility] 01/02/2021 0818 Local . 02 Electronically signed: . Miguel Melchor MD, Pathologist NPI- [id number] . 01 Gross description: . Received in formalin labeled "Dru, Kofi, hernia sac and mediastinal fat" are multiple fragments of yellow-gillespie lobulated soft tissue measuring in aggregate 8.1 x 8.1 x 2.0 cm. Focal membranous areas are present. A saclike structure is not grossly identified. [facility] tissue is submitted [place] A1. [place] [place] [facility] 12/31/2020 0952 Local . 02 Pathologist provided ICD-10: K46.9, R59.9 . 02 CPT . 114975 Specimen Comment: A courtesy copy of this report has been sent to [phone] Specimen Comment: Report sent to Performed at: 01 [facility] [address], [place] [id number] MD Johny Tomlin MD Phone: [phone] Performed at: 02 [facility] [address], [place] [id number] MD Miguel Melchor MD Phone: [phone]
--- NOTE | 2021-01-02 14:04 | PDOC3 ---
Discharge Summary Visit Information Date of Admission: Dec 27, 2020 Date of Discharge: Dec 29, 2020 Admitting Diagnosis: Hiatal hernia with gastroesophageal reflux disease Final Diagnosis Hiatal hernia with gastroesophageal reflux disease Brief Hospital Course Allergies Allergies Coded Allergies Type Severity Reaction Last Updated Verified No Known Drug Allergies 12/27/20 No Brief Hospital Course Mr. Gonsales is a 75 old male who underwent Laparoscopic repair of hiatal hernia with Dawna fundoplication. Postoperatively tolerating liquid diet, pain managed, and ambulating. His chronic health diseases were managed by the hospitalist service. He discharged home with a liquid diet x 2 weeks. He will follow up in the clinic Discharge Information Condition at Discharge: Stable Follow Up: Weeks (2) Disposition/Orders: D/C to Home Scheduled Amiodarone Hcl (Amiodarone Hcl) 200 Mg Tablet, 1 TAB PO DAILY for AFIB, #90 Ref 1 (Reported) Entered as Reported by: GISSELL WATSON on 12/26/20 0949 Last Taken: Unknown Dose on 12/27/20 0630 Last Action: Continued on 12/27/201749 by SALTY ANDERSEN MD Losartan Potassium (Losartan Potassium) 50 Mg Tablet, 50 MG PO DAILY for HYPERTENSION, (Reported) Entered as Reported by: GISSELL WATSON on 12/26/20 0952 Last Taken: Unknown Dose on 12/26/20 Last Action: Continued on 12/27/201749 by SALTY ANDERSEN MD Melatonin (Melatonin) 10 Mg Capsule, 1 CAP PO QHS for sleep for 30 Days, #30 Ref 0 (Reported) Entered as Reported by: GISSELL WATSON on 12/26/20 0959 Metformin Hcl (Metformin Hcl) 500 Mg Tablet, 500 MG PO 1-2XD for ANTI-DIABETIC, Ref 0 (Reported) Entered as Reported by: GISSELL WATSON on 12/26/20 1000 Last Taken: Unknown Dose on 12/26/20 Last Action: Last Taken Edited on 12/27/2018 by FELIPA MCMAHON Multivit-Min/FA/Lycopen/Lutein (Centrum Silver Men Tablet) 1 Each Tablet, 1 EACH PO DAILY for supplement, (Reported) Entered as Reported by: GISSELL WATSON on 12/26/20 0950 Mv-Mn/Lutein/Zeax/Bilber/Hb277 (Macular Health Formula Capsule) 1 Each Capsule, 1 EACH PO DAILY for supplement, (Reported) Entered as Reported by: GISSELL WATSON on 12/26/20 0956 Warfarin Sodium (Warfarin Sodium) 4 Mg Tablet, 4 MG PO 5xweek for DVT and PE, #30 (Reported) Entered as Reported by: GISSELL WATSON on 12/26/2057 Last Taken: Unknown Dose on 12/21/20 Last Action: Continued on 12/27/201749 by SALTY ANDERSEN MD Warfarin Sodium (Warfarin Sodium) 3 Mg Tablet, 3 MG PO 2xweek for DVT PE, #30 (Reported) Entered as Reported by: GISSELL WATSON on 12/26/20957 Last Taken: Unknown Dose on 12/21/20 Last Action: Last Taken Edited on 12/27/20917 by FELIPA MCMAHON [Immune defense] , PO DAILY for supplement, (Reported) Entered as Reported by: GISSELL WATSON on 12/26/20 09 [enzyme MD] , DAILY, (Reported) Entered as Reported by: GISSELL WATSON on 12/26/20 0950 [iron plus C] , PO DAILY, (Reported) Entered as Reported by: GISSELL WATSON on 12/26/20 0951 [paragon fish oil] , DAILY for supplement, (Reported) Entered as Reported by: GISSELL WATSON on 12/26/20954 Scheduled PRN Hydrocodone Bit/Acetaminophen (Hydrocodone-Apap 7.5-325/15 Soln ) 15 Ml Solution, 15 ML PO PRN Q6HRS PRN for PAIN, #400 Ref 0 Prescribed by: Jose Carlos Nino on 12/29/20951 Nitroglycerin (NITROGLYCERIN SubLingual) 0.4 Mg Tab.subl, 0.4 MG SL PRN Q5MIN PRN for CHEST PAIN, (Reported) Entered as Reported by: GISSELL WATSON on 12/26/2054 Last Action: Continued on 12/27/201749 by SALTY ANDERSEN MD Discontinued Medications Esomeprazole Magnesium (Nexium Capsule) 40 Mg Capsule.dr, 1 CAP PO DAILY for GERD, #30 Ref 5 (Reported) Entered as Reported by: GISSELL WATSON on 12/26/20952 Last Taken: Unknown Dose on 12/27/20629 Last Action: Last Taken Edited on 12/27/20917 by FELIPA MCMAHON Esomeprazole Magnesium (Nexium Capsule) 20 Mg Capsule.dr, 20 MG PO DAILYWSUP for GERD, #30 Ref 0 (Reported) Entered as Reported by: GISSELL WATSON on 12/26/20 0954 Hydrochlorothiazide (Hydrochlorothiazide Tablet) 12.5 Mg Tablet, 12.5 MG PO DAILY for DIURETIC, Ref 0 (Reported) Entered as Reported by: GISSELL WATSON on 12/26/20 0950 Last Taken: Unknown Dose on 12/26/20 Last Action: Discontinued on 12/27/20 1627 by WAGNER PATTERSON RN Justicifation of Admission Dx: Justifications for Admission: Justification of Admission Dx: Yes JOSE CARLOS NINO APRN Jan 02, 2021 14:04
== END 2020-12-29 12:45 | disposition home or self-care (01) ==
LOC: SURG 08:36 → INTOOBSV 13:55 → 4 NORTH 13:55 → UNDOADMIN 14:09 → 4 NORTH 14:09
PROVIDERS: ADMIT Surgery; ATTEND Surgery
DX: K44.9 Diaphragmatic hernia without obstruction or gangrene (principal); K21.9 Gastro-esophageal reflux disease without esophagitis; I10 Essential (primary) hypertension; I48.91 Unspecified atrial fibrillation; I49.5 Sick sinus syndrome; K58.9 Irritable bowel syndrome, unspecified; K66.0 Peritoneal adhesions (postprocedural) (postinfection); K27.9 Peptic ulcer, site unspecified, unspecified as acute or chronic, without hemorrhage or perforation; E13.9 Other specified diabetes mellitus without complications; E89.1 Postprocedural hypoinsulinemia; F17.200 Nicotine dependence, unspecified, uncomplicated; Z79.01 Long term (current) use of anticoagulants; Z86.711 Personal history of pulmonary embolism; Z86.718 Personal history of other venous thrombosis and embolism; Z87.11 Personal history of peptic ulcer disease; Z90.410 Acquired total absence of pancreas; Z95.0 Presence of cardiac pacemaker; Z98.890 Other specified postprocedural states; Z79.4 Long term (current) use of insulin
CPT/HCPCS: 36415; 43280; 80048; 82962; 85025; 85610; 85730; 88302; 96361; 96372; 96374; A4314; A4364; A4930; A6219; C1781; C9113; G0378; G0379; J0690; J1100; J1170; J1650; J1815; J2250; J2270; J2370; J2405; J2704; J2710; J3010; J3490; J7120; A4452